=== PATIENT | female | born 1990 | race Caucasian/White ===

== ENCOUNTER 2017-01-09 09:54 | Emergency (ER) | payer OTHER ==
[~2017-01-09] VITALS: Ht 165.1 cm; Wt 76.2 kg
[~2017-01-09 09:54] MED LIST: ZOFRAN4 MG PO
[2017-01-09 11:27] LABS: BILIRUBIN NEGATIVE (NEGATIVE); BLOOD NEGATIVE (NEGATIVE); CLARITY CLEAR (CLEAR); COLOR STRAW (YELLOW); GLUCOSE NEGATIVE (NEGATIVE); KETONE NEGATIVE (NEGATIVE); LEUKO ESTERASE NEGATIVE (NEGATIVE); NITRITE NEGATIVE (NEGATIVE); PH 5.5 (5.0-9.0); SPECIFIC GRAVITY <= 1.005 (1.005-1.030); UROBILINOGEN 0.2 E.U./dl (0.2-1.0)
[2017-01-09] MEDS ORDERED: CYCLOBENZAPRINE5 M3 PO (12:03)
[2017-01-09] MEDS ORDERED: MEDROL DOSEPAK4 MG PO (12:03)
[2017-01-09] MEDS ORDERED: TRAMADOL HCL50 MG PO (12:03)
== END 2017-01-09 12:48 | disposition home or self-care (01) ==
LOC: ED 09:54
PROVIDERS: Physician Assistant
DX: G89.29 Other chronic pain (principal); M54.6 Pain in thoracic spine; F17.200 Nicotine dependence, unspecified, uncomplicated; Z88.8 Allergy status to other drugs, medicaments and biological substances